=== PATIENT | female | born 1950 | race Caucasian/White ===

== ENCOUNTER 2017-09-20 20:44 | Emergency (ER) | payer OTHER ==
[2017-09-20] MEDS ORDERED: ASPIRIN 81 MG CHEWABLE TAB ONE (20:54)
--- NOTE | 2017-09-20 20:54 | CPEKG ---
Heart Rate: 87 RR Interval: 690 P-R Interval: 148 QRSD Interval: 84 QT Interval: 356 QTC Interval: 429 P [place]: 26 QRS [place]: 13 T Wave [place]: 45 EKG Severity - NORMAL ECG - EKG Impression: SINUS RHYTHM Electronically Signed By: Delonte White 20-Sep-2017 21:06:59
[2017-09-20] MEDS ORDERED: LORazepam 2 MG/ML INJ ONE (21:01)
[2017-09-20] MEDS ORDERED: LORazepam 2 MG/ML INJ IVP ONE (21:03)
--- NOTE | 2017-09-20 21:06 | EDPHY ---
H & P Time Seen by Provider: 09/20/17 20:47 HPI/ROS: CHIEF COMPLAINT: Chest pain HISTORY OF PRESENT ILLNESS: Patient was diagnosed with lung cancer 2 weeks ago. She was having a cough and eventually got diagnosed at [facility]. She lives in [place] and has an apartment in [place]. Yesterday last night she developed some central sharp chest pain which went away and then she was able to sleep. At 8 o'clock p.m. tonight it reoccurred. She feels like she can't take a deep breath and is located in the center of her chest and does not radiate. Her cough which she has had for several months does not changed. No hemoptysis or sputum production or fever. No recent injury or trauma. Chest pain and shortness of breath is not pleuritic or exertional. REVIEW OF SYSTEMS: Eye: no change in vision ENT: no sore throat, she does describe feeling a lump in her throat that it was hard to swallow today although she was able to eat and drink. Cardiac: HPI no palpitations Pulmonary: HPI Abdomen: no vomiting, diarrhea, abdominal pain Musculoskeletal: no back pain Skin: no rash Neuro: no headache Constitutional: no fever : no urinary symptoms A comprehensive 10 point review of systems is otherwise negative aside from elements mentioned in the history of present illness. PAST MEDICAL HISTORY: Recent diagnosis of lung cancer. Social history: , here with her . Living situation as described in HPI. Nonsmoker. Temp 36. 7, General Appearance: Alert and conversant, cooperative. Eyes: No scleral icterus. ENT, Mouth: Normal mucous membranes. No angioedema. No trismus. Uvula midline. Respiratory: Normal respiratory effort, breath sounds equal, lungs are clear to auscultation. Cardiovascular: Regular rate and rhythm. Gastrointestinal: Abdomen is soft and non tender. Neurological: Alert and oriented x3. Normally conversant. Face symmetric, normal movement and sensation in all extremities. Skin: Warm and dry, no rashes. Musculoskeletal: No peripheral edema and no joint swelling. Psychiatric: Moderately anxious. Emergency Department course/MDM: At least a moderate pretest probability for pulmonary embolism given recent diagnosis of lung cancer. CT angiography Discussed and consented. EKG is normal in symptoms be atypical for ACS. Plan for troponin. 2157: Negative CT angiography for PE per Dr. Post, some compression externally of the right mainstem bronchus 3 mm but no impending airway compromise. I think ACS is unlikely, atypical symptoms and no risk factors and negative EKG and troponin. Results discussed at this time, patient is much less anxious, I think it is reasonable to discharge her and have her keep her appointment tomorrow for her 1st cancer treatment. Smoking Status: Never smoked Constitutional: Initial Vital Signs Heart Rate 84 09/20/17 20:47 Respiratory Rate 16 09/20/17 20:47 Blood Pressure 139/95 H 09/20/17 20:47 O2 Sat (%) 97 09/20/17 20:47 O2 Delivery Mode Nasal Cannula O2 (L/minute) 2 Allergies/Adverse Reactions: No Known Allergies Allergy (Unverified 09/20/17 20:54) Home Medications: Medication Instructions Recorded Lexapro 09/20/17 Medical Decision Making - Diagnostics EKG Interpretation: 12-lead EKG interpreted by me; official reading is in trace master. My interpretation is sinus rhythm rate 87 no ischemic changes. Imaging Results: Imaging Impressions Chest/Thorax CTA 09/20/17 21:06 Impression: 1. No evidence of pulmonary thromboembolic disease. 2. Left lower lobe mass, with markedly enlarged right paratracheal, subcarinal , and left infrahilar lymphadenopathy. 3. Compression and narrowing of the tyrel and right main bronchus due to right paratracheal and subcarinal lymphadenopathy. Findings discussed with Emergency Department physician, Delonte White M.D., on September 20, 2017 at 2208. Differential Diagnosis: Differential diagnosis considered for chest pain including but not limited to myocardial ischemia, aortic dissection, pericarditis, pulmonary embolus, chest wall pain, pleural inflammation and pulmonary infectious causes. - Data Points Laboratory Results: Laboratory Results 09/20/17 21:05 09/20/17 21:05 09/20/17 09/20/17 09/20/17 21:05 21:05 20:56 WBC 9.90 10^3/uL H 10^3/uL (3.80-9.50) RBC 4.85 10^6/uL 10^6/uL (4.18-5.33) Hgb 15.8 g/dL g/dL (12.6-16.3) POC Hgb 13.3 gm/dL gm/dL (12.6-16.3) Hct 42.4 % % (38.0-47.0) POC Hct 39 % % (38-47) MCV 87.4 fL fL (81.5-99.8) MCH 32.6 pg pg (27.9-34.1) MCHC 37.3 g/dL H g/dL (32.4-36.7) RDW 11.7 % % (11.5-15.2) Plt Count 305 10^3/uL 10^3/uL (150-400) MPV 10.2 fL fL (8.7-11.7) Neut % (Auto) 67.9 % % (39.3-74.2) Lymph % (Auto) 23.3 % % (15.0-45.0) Edwards % (Auto) 6.8 % % (4.5-13.0) Eos % (Auto) 0.9 % % (0.6-7.6) Baso % (Auto) 0.8 % % (0.3-1.7) Nucleat RBC Rel Count 0.0 % % (0.0-0.2) Absolute Neuts (auto) 6.72 10^3/uL H 10^3/uL (1.70-6.50) Absolute Lymphs (auto) 2.31 10^3/uL 10^3/uL (1.00-3.00) Absolute Monos (auto) 0.67 10^3/uL 10^3/uL (0.30-0.80) Absolute Eos (auto) 0.09 10^3/uL 10^3/uL (0.03-0.40) Absolute Basos (auto) 0.08 10^3/uL 10^3/uL (0.02-0.10) Absolute Nucleated RBC 0.00 10^3/uL 10^3/uL (0-0.01) Immature Gran % 0.3 % % (0.0-1.1) Immature Gran # 0.03 10^3/uL 10^3/uL (0.00-0.10) POC Sodium 138 mEq/L mEq/L (134-144) Sodium 136 mEq/L mEq/L (134-144) POC Potassium 3.6 mEq/L mEq/L (3.3-5.0) Potassium 3.6 mEq/L mEq/L (3.5-5.2) POC Chloride 105 mEq/L mEq/L (97-110) Chloride 102 mEq/L mEq/L (97-110) Carbon Dioxide 22 mEq/l mEq/l (22-31) Anion Gap 12 mEq/L mEq/L (8-16) POC BUN 12 mg/dL mg/dL (7-23) BUN 13 mg/dL mg/dL (7-23) Creatinine 0.7 mg/dL mg/dL (0.6-1.0) POC Creatinine 0.7 mg/dL mg/dL (0.6-1.0) Estimated GFR > 60 Glucose 99 mg/dL mg/dL (70-100) POC Glucose 104 mg/dL H mg/dL (70-100) Calcium 10.5 mg/dL H mg/dL (8.5-10.4) Troponin I < 0.012 ng/mL ng/mL (0.000-0.034) Medications Given: Discontinued Medications Lorazepam (Ativan Injection) 1 mg IVP EDNOW ONE Stop: 09/20/17 21:04 Last Admin: 09/20/17 21:05 Dose: 1 mg Point of Care Test Results: 09/20/17 20:56 POC Sodium 138 POC Potassium 3.6 POC Chloride 105 POC BUN 12 POC Creatinine 0.7 POC Glucose 104 H Departure - Departure Disposition: Home, Routine, Self-Care Clinical Impression: Chest pain Qualifiers: Chest pain type: unspecified Qualified Code(s): R07.9 - Chest pain, unspecified Lung cancer Qualifiers: Laterality: unspecified laterality Lung location: unspecified part of lung Qualified Code(s): C34.90 - Malignant neoplasm of unspecified part of unspecified bronchus or lung Condition: Good Instructions: Chest Pain (ED) Additional Instructions: [facility] primary care physician referral call char filter operator ask for number: [phone] Referrals: DEWAYNE SOLORZANO [Other] - As per Instructions
[2017-09-20] MEDS ORDERED: IOPAMIDOL (ISOVUE 370) 100 ML BTL IV ONE (21:10)
[2017-09-20 21:33] LABS: ANION GAP 12 mEq/L (8-16); CALCIUM 10.5 mg/dL (8.5-10.4); CARBON DIOXIDE 22 mEq/l (22-31); CHLORIDE 102 mEq/L (97-110); CREATININE 0.7 mg/dL (0.6-1.0); GLOMERULAR FILTRATION RATE > 60; GLUCOSE 99 mg/dL (70-100); POTASSIUM 3.6 mEq/L (3.5-5.2); SODIUM 136 mEq/L (134-144)
[2017-09-20 21:39] LABS: % IMMATURE GRANULYOCYTES 0.3 % (0.0-1.1); ABSOLUTE IMMATURE GRANULOCYTES 0.03 10^3/uL (0.00-0.10); ADD DIFF? NO; ADD MORPH? NO; ADD SCAN? NO; ATYPICAL LYMPHOCYTE FLAG 0 (0-99); FRAGMENT RBC FLAG 0 (0-99); HEMATOCRIT 42.4 % (38.0-47.0); HEMOGLOBIN 15.8 g/dL (12.6-16.3); LEFT SHIFT FLG 0 (0-99); LIPEMIA HEMOLYSIS FLAG 90 (0-99); MEAN CELL HEMOGLOBIN 32.6 pg (27.9-34.1); MEAN CELL HEMOGLOBIN CONCENTR. 37.3 g/dL (32.4-36.7); MEAN CELL VOLUME 87.4 fL (81.5-99.8); MEAN PLATELET VOLUME 10.2 fL (8.7-11.7); PLATELET CLUMPS FLAG 0 (0-99); PLATELET COUNT 305 10^3/uL (150-400); RED BLOOD CELL COUNT 4.85 10^6/uL (4.18-5.33); RED CELL DISTRIBUTION WIDTH 11.7 % (11.5-15.2)
[2017-09-20 21:45] LABS: TROPONIN I < 0.012 ng/mL (0.000-0.034)
[2017-09-20 22:22] VITALS: BP 130/74; PULSE 84; RESP 16; O2SAT 95
[2017-09-20 22:28] VITALS: TEMP 98.8
== END 2017-09-20 22:27 | disposition home or self-care (01) ==
DX: C34.90 Malignant neoplasm of unspecified part of unspecified bronchus or lung (principal)
CPT/HCPCS: 71275; 93005; 96374; 99285; J2060; Q9967; 82947-QW

== ENCOUNTER → 2018-02-14 | Outpatient (CLI) | payer OTHER | LOC: FIMAGING 10:05 | PROVIDERS: ATTEND Internal Medicine Hematology & Oncology | DX: R22.1 Localized swelling, mass and lump, neck (principal) | CPT/HCPCS: 78804; A9572 ==